=== PATIENT | female | born 1990 | race Caucasian/White ===

== ENCOUNTER 2017-03-16 22:01 | Emergency (ER) | payer MEDICAID ==
[2017-03-16 22:09] VITALS: RESP 16
--- NOTE | 2017-03-16 23:23 | EDPHY ---
H & P Stated Complaint: recent L foot fx, casted today - says increasing pain/ swelling in LLE HPI/ROS: Chief complaint: Left foot fracture, increasing pain after casting today History of present illness: 26-year-old female presents to the emergency department after sustaining a left foot fracture last week. She states her calf and foot was stepped on by a horse. She followed up with an orthopedic doctor today at [facility] and a cast was placed. She states since the cast was placed she has had increasing pain. This started to become intolerable. She has attempted to treat with pain medications and elevation of the extremity but this is not helping. She denies other associated signs or symptoms including no new trauma, no cough, no trouble breathing, no chest pain. - Medical/Surgical History Hx Asthma: No Hx Chronic Respiratory Disease: No Hx Diabetes: No Hx Cardiac Disease: No Hx Renal Disease: No Hx Cirrhosis: No Hx Alcoholism: No Hx HIV/AIDS: No Hx Splenectomy or Spleen Trauma: No Other PMH: depression, cholecystectomy, 2 partial finger amp L hand - Social History Smoking Status: Never smoked - Physical Exam Exam: General: Alert, nontoxic Skin: The skin to the left extremity is unremarkable. Vascular: Capillary refill is delayed examination of the toes with cast in place. After removal of cast patient has brisk capillary refill and DP and PT pulses are 2+. Musculoskeletal: The left lower extremity is not range given known it fractures. Neurologic: Sensation intact throughout the left leg. Constitutional: Initial Vital Signs Heart Rate 76 03/16/17 22:05 Respiratory Rate 16 03/16/17 22:05 Blood Pressure 126/87 H 03/16/17 22:05 O2 Sat (%) 94 03/16/17 22:05 O2 Delivery Mode Room Air Allergies/Adverse Reactions: No Known Allergies Allergy (Verified 03/16/17 22:09) Home Medications: Medication Instructions Recorded [place] 5/325 (*) 03/16/17 Oxycodone HCl 03/16/17 Prozac 10 MG (*) 03/16/17 Wellbutrin 100mg (*) 03/16/17 Medical Decision Making ED Course/Re-evaluation: Patient seen under the supervision of my secondary supervising physician Dr. Aleksandar Rosales. Patient presents to the emergency department for left lower leg and foot pain after being placed in a cast today for foot fracture. She does have delayed capillary refill of the foot. I have consulted with her orthopedic group, physician certified registered dental assistant Sarah. She is comfortable with the cast being cut off. Initially the cast is bivalved. She reports improvement in pain and on re-examination neurovascular exam is improved with brisk capillary refill. Given trauma to calf and increase in pain ultrasound is obtained to ensure no underlying DVT and this is normal. We were going to bivalve the cast but she is concerned as it does not immobilize her toes, they stick out and she has known fractures in the toes from the trauma and she is catching and bumping them on things. She is therefore placed in a short-leg Tomás splint. She is requesting referral to another orthopedic group since she is not sure she is comfortable following up with her old orthopedic group. She is given referral information. I discussed with her that she does need to follow up with an orthopedic doctor whether it is the last when she saw or a new one for continued evaluation and care. Home care was discussed. Return precautions are given. Patient voiced understanding and agreement with plan. Differential Diagnosis: Included but not limited to a vascular compromise from too tight of a cast, improper immobilization, superficial thrombophlebitis, DVT Departure - Departure Disposition: Home, Routine, Self-Care Clinical Impression: Cast removal Condition: Good Instructions: Cast Care (ED), Splint Care (ED) Additional Instructions: Follow-up with your orthopedic doctor for continued evaluation and care. If you want to follow up with another orthopedic doctor resources are listed to call and see if they will see you. Use pain medication as prescribed Keep foot/leg elevated as much as possible If symptoms worsen or new symptoms develop return to the emergency room for recheck Referrals: NONE *PRIMARY CARE P,. [Primary Care Provider] - As per Instructions Sherri Lyons MD [Medical Doctor] - As per Instructions
[2017-03-17 00:12] VITALS: BP 100/65; PULSE 73; O2SAT 96
== END 2017-03-17 00:11 | disposition home or self-care (01) ==
DX: Z46.89 Encounter for fitting and adjustment of other specified devices (principal)